=== PATIENT | female | born 1985 | race American Indian/Alaskan Native ===

== ENCOUNTER 2019-10-16 20:04 | Emergency (ER) | payer SELFPAY ==
[2019-10-16 20:15] VITALS: BP 122/69
--- NOTE | 2019-10-16 21:01 | Event Note ---
ED Screening Note ED Screening Note: vaginal discomfort that began today no vaginal discharge no abd pain states that her spouse is having penile discharge LNMP: on depo no PMHx no allergy to meds This initial assessment/diagnostic orders/clinical plan/treatment(s) is/are subject to change based on patients health status, clinical progression and re- assessment by fellow clinical providers in the ED. Further treatment and workup at subsequent clinical providers discretion. Patient/guardian urged not to elope from the ED as their condition may be serious if not clinically assessed and managed.
--- NOTE | 2019-10-16 21:05 | Emergency Department Report ---
Chief Complaint: Urogenital-Female Stated Complaint: VAGINAL DISCOMFORT Time Seen by Provider: 10/16/19 21:00 - HPI History of Present Illness: pt presents with mild vaginal discomfort that began today no vaginal discharge no abd pain no vomiting no fever states that her spouse is having penile discharge, she states that she not really having any symptoms but was concerned because her is LNMP: on depo no PMHx no allergy to meds Patient is presenting with a non-medical emergency at this time, medical screening exam performed Patient is concerned because her has STD symptoms and she wants to have routine STD testing Will refer patient to the health department for full STD panel advised pt please have a full STD panel performed at the health department. return to emergency room for any new or worsening symptoms. - Exam Vital Signs: Vital Signs 10/16/19 20:14 Temperature 98.3 F Pulse Rate 102 H Respiratory 18 Rate Blood Pressure 122/69 O2 Sat by Pulse 100 Oximetry MSE screening note: Focused history and physical exam performed. ED Disposition for MSE Clinical Impression: Concern about STD in female without diagnosis Disposition: Z-07 MED SCREENING EXAM-LEFT Is pt being admited?: No Does the pt Need Aspirin: No Condition: Stable Additional Instructions: please have a full STD panel performed at the health department. return to emergency room for any new or worsening symptoms. [facility] Forms: Work/School Release Form(ED) Time of Disposition: 21:04 Print Language: KHMER
== END 2019-10-16 21:30 | disposition left against medical advice (07) ==
LOC: ED 20:04
DX: R10.2 Pelvic and perineal pain (principal)